=== PATIENT | female | born 1995 | race Hispanic/Latino ===

== ENCOUNTER 2017-07-10 11:05 | Emergency (ER) | payer SELFPAY ==
[2017-07-10 12:05] LABS: #Lymphocytes 1.5 thou/uL (1.20-3.40); #Monocytes 0.5 thou/uL (0.11-0.59); #Neutrophils 4.9 thou/uL (1.40-6.50); %Basophils 0.6 % (0.0-1.0); %Eosinophils 0.5 % (0.0-10.0); %Lymphocytes 21.8 % (21.0-51.0); %Monocytes 7.5 % (0.0-10.0); %Neutrophils 69.6 % (42.0-75.0); Hemoglobin 11.1 g/dL (12.0-16.0); Mean Corpuscular Hemoglobin 30.8 pg (27.0-31.0); Mean Corpuscular Volume 93.5 fl (81.0-99.0); Mean Platelet Volume 7.5 fL (7.4-10.4); Platelet Count 328 thou/uL (130-400); RBC Distribution Width 12.2 % (11.5-14.5); Red Blood Cell (RBC) Count 3.61 mill/uL (4.20-5.40); White Blood Cell (WBC) Count 7.1 thou/uL (4.8-10.8)
[2017-07-10 12:32] LABS: ALT (SGPT) 41 U/L (8-55); AST (SGOT) 26 U/L (5-34); Albumin 4.3 g/dL (3.5-5.0); Alkaline Phosphatase 51 U/L (40-150); Anion Gap 12 mmol/L (10-20); BUN (Urea Nitrogen) 12 mg/dL (7.0-18.7); Bilirubin, Total 0.3 mg/dL (0.2-1.2); Calc. Creatinine Clearance 0 mL/min (70-130); Calcium 9.4 mg/dL (7.8-10.44); Carbon Dioxide 25 mmol/L (22-29); Chloride 105 mmol/L (98-107); Estimated GFR-MDRD Greater than 90; Glucose 101 mg/dL (70-105); Potassium 3.8 mmol/L (3.5-5.1); Protein, Total 7.3 g/dL (6.0-8.3); Sodium 138 mmol/L (136-145)
[2017-07-10] MEDS ORDERED: Ibuprofen 200 MG TAB ONE (12:49)
[2017-07-10 13:10] LABS: Bilirubin Small (Negative); Blood, Urine Large (Negative); Clarity CLOUDY (Clear); Glucose, Urine (Dipstick) Negative (Negative); Leukocyte Small (Negative); Nitrite Negative (Negative); Protein, Urine (Dipstick) 100 mg/dL (Neg-Trace); Specific Gravity, Urine 1.026 (1.002-1.036)
[2017-07-10 13:12] LABS: Pregnancy Test - Urine (BHCG) POSITIVE (Negative); Pregu Control Background? CLEAR/WHITE (CLR/WHITE); Pregu Control Bar Appear? YES (CONTROL BAR); Specific Gravity 1.026 (1.002-1.036)
[2017-07-10 13:13] LABS: Hyaline Casts/LPF 4-6 HYALINE CAST LPF (0-3 Hyaline); Pathc Cast-AUWi Flag 0.94 (0-2.49); WBC/HPF 21-50 HPF (0-3)
[2017-07-10 13:22] LABS: Bacteria/HPF 1+ HPF (None Seen); Yeast-All Forms None Seen HPF (None Seen)
[2017-07-12 01:13] LABS: Chlamydia by PCR Not Detected (NotDetected); GC by PCR Not Detected (NotDetected)
== END 2017-07-10 15:08 | disposition home or self-care (01) ==
LOC: ERS 11:05
DX: O03.4 Incomplete spontaneous abortion without complication (principal)
CPT/HCPCS: 36415; 80053; 81003; 81015; 81025; 84702; 85025; 86900; 86901; 87480; 87491; 87510; 87591; 87660; 99284

== ENCOUNTER 2018-02-14 20:39 | Emergency (ER) | payer MEDICAID, OTHER | END 2018-02-14 22:45 | disposition home or self-care (01) | LOC: ERS 20:39 | DX: O9A.211 Injury, poisoning and certain other consequences of external causes complicating pregnancy, first trimester (principal); V43.52XA Car driver injured in collision with other type car in traffic accident, initial encounter | CPT/HCPCS: 99283 ==

== ENCOUNTER 2018-03-31 09:21 | Day surgery (SDC) | payer OTHER ==
[2018-03-31 09:52] VITALS: BP 111/64; TEMP 99.4
--- NOTE | 2018-03-31 10:05 | PDOC.FPROB ---
FMR OB H&P: HPI - History of Present Illness Chief Complaint: abdominal pain History of Present Illness: 22 yo at 22.3w by reported 19.1w sono at [facility] (no records available at this time) presents with cc of abdominal pain that started suddenly at 0500 this morning. She reports she was sleeping and it woke her from sleep. She went to the restroom, walked around a bit and pain improved. She laid back down and then woke up again with sudden sharp pain at approximately 0830. She has not tried anything to help with the pain. She was feeling fine yesterday apart from possibly a little bit of lower abdominal pain that she associates with some [place] contractions. She is feeling baby move (about 4X a day right now) . She denies n/v/d/f/c. She denies any rashes or sick contacts. She ate dinner without issue last night but has not yet eaten this morning. She has a little bit of an appetite but less than usual. Primary Care Physician: PNC FMR OB H&P: Current - Care : 2 Para: 0 Gestational age: 22.3 Due date: 08/01/2017 Dating Criteria: reported 19.1w sono Course/Complications: None per patient - OB Labs Blood type: unknown RH: unknown Antibody Screen: unknown HIV: unknown RPR: unknown HepBsAg: unknown Quad screen: unknown (patient reports negative) Gonorrhea: unknown Chlamydia: unknown GBS: unknown - First Trimester Ultrasound First trimester: Patient reports sono on 03/08/18 (19.1w) FMR OB H&P: History - Past Medical History PMH: Anxiety - previously on Lexapro which she has not taken this - OB History OB History: SAB in Jun 2017 (8 weeks) - Surgical History Sx History: Denies - Social History Social History: Denies tobacco, alcohol, drug use - Family History Family History: Mom - DM FMR OB H&P: Medications - Current Home Medications: Medication Instructions Recorded Confirmed Type 21/Iron Fu/Folic Acid 1 tablet PO DAILY 03/31/18 03/31/18 History [ Complete Caplet] Allergies/Adverse Reactions: Allergies Allergy/AdvReac Type Severity Reaction Status Date / Time No Known Drug Allergies Allergy Verified 03/31/18 09:53 FMR OB H&P: ROS - Review of Systems General: reports: weight/appetite/sleep changes (slightly decreased appetite this morning), other. denies: fever/chills Eyes: denies: eye pain, vision changes ENT: denies: nasal congestion, sore throat Cardiovascular: denies: chest pain, palpitation Respiratory: denies: cough, congestion Gastrointestinal: reports: abdominal pain. denies: nausea, vomiting, diarrhea Genitourinary (Female): denies: dysuria, hematuria Musculoskeletal: denies: pain, swelling Neurologic: denies: loss of counsciousness, headache Integumentary: denies: rash, lesions Psychological: reports: other (endorses nightmares) FMR OB H&P: Vital Signs - Maternal Vital signs: Vital Signs - First Documented Temp Pulse Resp BP 99.4 F 83 16 111/64 03/31/18 09:48 03/31/18 09:48 03/31/18 09:48 03/31/18 09:48 - Heart Tones Baseline: 150 Variability: moderate Acceleration: absent Deceleration: absent [place] contractions every: none FMR OB H&P: Physical Exam - Physical Exam General: awake, alert and oriented, other (appears slightly uncomfortable) HEENT: normocephalic and atraumatic, MMM Neck: supple Heart: RRR, normal S1/S2 General: CTAB, no respiratory distress Abdomen: soft, gravid, fundus(cm) (20), other (bowel sounds hypoactive, point tenderness just above umbilicus that radiates to RLQ, negative Villareal's sign and negative McBurney's point tenderness) Musculoskeletal: pulses present, FROM in all four extremities Neurological: DTR +1, no focal deficit Skin: no rash, good tugor, capillary refill <2 seconds Psychiatric: good judgement and insight, normal mood and affect FMR OB H&P: A/P - Problem List (1) Current Visit: Yes Status: Acute (2) Abdominal pain affecting Current Visit: Yes Status: Acute Code(s): O26.899 - OTH RELATED CONDITIONS, UNSPECIFIED TRIMESTER; R10.9 - UNSPECIFIED ABDOMINAL PAIN Disposition: 22 yo at 22.3w by reported 19.1w sono here with abdominal pain 1. Abdominal pain - Sudden onset and now persistent 7/10 - Due to periumbilical location with radiation RLQ, will check CBC to look for e /o infection and monitor on L&D - UA with reflex micro - 1g Tylenol and 1L LR 2. at 22w - Patient reports regular care at [facility] - No records available at this time Dispo: Will monitor on L&D Discussion: Date/Time: 03/31/18 0957 This H&P was discussed with Dr. López who agree with the above documentation and plan.
[2018-03-31] MEDS ORDERED: Acetaminophen 500 MG TAB PO SCH (10:30)
[2018-03-31 10:35] LABS: Bilirubin Negative (Negative); Blood, Urine Negative (Negative); Clarity CLEAR (Clear); Glucose, Urine (Dipstick) Negative (Negative); Leukocyte Negative (Negative); Nitrite Negative (Negative); Protein, Urine (Dipstick) Negative (Neg-Trace); Specific Gravity, Urine 1.007 (1.002-1.036); Urobilinogen 0.2 mg/dL (0.2-1.0)
[2018-03-31 10:41] LABS: #Eosinphils 0.1 thou/uL (0.0-0.7); #Lymphocytes 1.5 thou/uL (1.20-3.40); #Monocytes 0.6 thou/uL (0.11-0.59); %Basophils 0.1 % (0.0-1.0); %Eosinophils 0.7 % (0.0-10.0); %Lymphocytes 13.6 % (21.0-51.0); %Monocytes 5.1 % (0.0-10.0); %Neutrophils 80.5 % (42.0-75.0); Hemoglobin 11.5 g/dL (12.0-16.0); Mean Corpuscular HGB CONC 33.5 g/dL (32.0-36.0); Mean Corpuscular Volume 92.7 fL (78.0-98.0); Mean Platelet Volume 8.9 fL (7.4-10.4); Platelet Count 225 thou/uL (130-400); RBC Distribution Width 13.6 % (11.5-14.5); Red Blood Cell (RBC) Count 3.71 mill/uL (4.20-5.40); White Blood Cell (WBC) Count 11.2 thou/uL (4.8-10.8)
[2018-03-31] MEDS ORDERED: Lactated Ringer's 1,000 ML IV SCH (10:45)
--- NOTE | 2018-03-31 11:07 | PDOC.EVN ---
Event Note - Event Note Event Note: S: Pain remains 7/10 with palpation. Now with slight TTP in RUQ that radiates to RLQ. Denies any new nausea or chills. O: VSS, T now 98.4 FHT 150/mod/no accels/no decels, reassuring Feeling baby move A/P: 22 yo at 22.3w here with abdominal pain 1. Abdominal pain - Labs reviewed. WBC slightly elevated (WNL for ) with neutrophil predominance - UA unremarkable - Will finish 1L bolus and re-assess pain at that time - If persistent, worsening, may consider further imaging
--- NOTE | 2018-03-31 12:09 | PDOC.EVN ---
Event Note - Event Note Event Note: S: Pain improving. None at rest. Denies any new nausea or chills. O: VSS BS sono showed posterior placenta, gross movement and cardiac motion Gen: awake, alert, in no distress, ambulating Abd: soft, midly TTP superior to umbilicus, no RUQ/RLQ pain A/P: 22 yo at 22.3w here with abdominal pain likely 2/2 round ligament pain 1. Abdominal pain, likely round ligament pain - Labs reviewed. WBC slightly elevated (WNL for ) with neutrophil predominance - UA unremarkable - Pain improving with Tylenol, discussed gentle stretching, PRN tylenol at home , hydration - Discussed return precautions including fever, chills, n/v/d, vaginal bleeding or discharge - F/u at [facility] this week
== END 2018-03-31 12:10 | disposition home or self-care (01) ==
LOC: L&D/OP 09:21
PROVIDERS: ATTEND Obstetrics & Gynecology
DX: O99.89 Other specified diseases and conditions complicating pregnancy, childbirth and the puerperium (principal); R10.33 Periumbilical pain; R10.31 Right lower quadrant pain; O99.342 Other mental disorders complicating pregnancy, second trimester; F41.9 Anxiety disorder, unspecified; Z3A.22 22 weeks gestation of pregnancy; Z79.899 Other long term (current) drug therapy
CPT/HCPCS: 76815; 81003; 85025; 96360; 96361; 99283

== ENCOUNTER 2018-08-07 21:00 | Inpatient (IN) | payer OTHER ==
[2018-08-07] MEDS ORDERED: Ibuprofen 800 MG TAB PO PRN (21:29)
[2018-08-07] MEDS ORDERED: NS / Oxytocin 40 units/1000ml 1,000 ML IV PRN (21:29)
[2018-08-07] MEDS ORDERED: Ondansetron PF 4 MG/2 ML Vial IVP PRN (21:29)
[2018-08-07] MEDS ORDERED: Acetaminophen 500 MG TAB PO PRN (21:29)
[2018-08-07] MEDS ORDERED: Lidocaine 1% (PF) 30 ML VIAL SC PRN (21:29)
[2018-08-07] MEDS ORDERED: Promethazine HCl 25 MG/ML VIAL IM PRN (21:29)
[2018-08-07] MEDS ORDERED: Docusate 100 MG CAP PO PRN (21:29)
[2018-08-07] MEDS ORDERED: Misoprostol 100 MCG TAB VAG SCH (21:30)
--- NOTE | 2018-08-07 21:33 | PDOC.FPROB ---
FMR OB H&P: HPI - History of Present Illness Chief Complaint: Post-dates IOL Indentification: at 40.6 wks History of Present Illness: 23 year old at 40.6 wks by LMP/19.1 wks sono presents for post-dates IOL. Patient has history of anemia in . She denies LoF, vaginal bleeding, or vaginal discharge. Patient endorses occasional contractions. Endorses good movement. 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 History: No history of abnormal Pap smears No history of STDs - Surgical History Sx History: Denies - Social History Social History: Denies alcohol, tobacco, or drug use - Family History Family History: Insignificant FMR OB H&P: Medications - Current Home Medications: Medication Instructions Recorded Confirmed Type 21/Iron Fu/Folic Acid 1 tablet PO DAILY 03/31/18 08/07/18 History [ Complete Caplet] Allergies/Adverse Reactions: Allergies Allergy/AdvReac Type Severity Reaction Status Date / Time No Known Drug Allergies Allergy Verified 08/07/18 21:26 FMR OB H&P: ROS - Review of Systems General: denies: fever/chills, weight/appetite/sleep changes Eyes: denies: vision changes, double vision ENT: denies: nasal congestion, rhinorrhea, sore throat Cardiovascular: denies: chest pain, palpitation, edema Respiratory: denies: cough, congestion, shortness of breath Gastrointestinal: denies: abdominal pain, bloating, nausea, diarrhea, constipation Genitourinary (Female): reports: contractions. denies: vaginal discharge, vaginal pain, vaginal bleeding Musculoskeletal: denies: pain, stiffness Neurologic: denies: numbness, syncope, seizures Integumentary: reports: other (striae gravidarum). denies: itching, rash, lesions Hematologic/Lymphatic: denies: prolonged or excessive bleeding Psychological: denies: depression, anxiety FMR OB H&P: Vital Signs - Maternal Vital signs: BP 120/69 Pulse 90 Afebrile - Heart Tones Baseline: 145 Variability: moderate Acceleration: present Deceleration: absent Category: category 1 [place] contractions every: q6 min FMR OB H&P: Physical Exam - Physical Exam General: NAD HEENT: normocephalic and atraumatic, EOMI, MMM, grossly normal vision, grossly normal hearing Neck: supple Heart: RRR, normal S1/S2, no murmurs/rubs/gallops General: CTAB, good air movement Abdomen: soft, gravid, non-tender Musculoskeletal: pulses present, FROM in all four extremities Neurological: no tremor, no focal deficit Skin: no rash, capillary refill <2 seconds Lymphatic: no unusual bruising or bleeding, no purpura Psychiatric: intact recent and remote memory, good judgement and insight, normal mood and affect - Pelvic Exam Vulva: normal hair distribution SVE: 22:00 closed/thick/high Gustafson score: 0 Presentation: cephalic FMR OB H&P: A/P - Problem List (1) Encounter for induction of labor Current Visit: Yes Status: Acute Code(s): Z34.90 - ENCNTR FOR SUPRVSN OF NORMAL , UNSP, UNSP TRIMESTER (2) Post-dates Current Visit: Yes Status: Acute Code(s): O48.0 - POST-TERM (3) Anemia affecting Current Visit: Yes Status: Acute Code(s): O99.019 - ANEMIA COMPLICATING , UNSPECIFIED TRIMESTER Disposition: 23 year old at 40.6 wks by LMP/19.1 wks presents for post-dates IOL 1. Post-dates IOL - Cytotec induction: Gustafson score 0 - q4h checks - Uncomplicated - Vertex on bedside sono 2. Anemia of - H&H improved with 3T labs with iron rich foods; patient not on supplementation 3. SAB x1 Discussion: Date/Time: 08/07/182131 This H&P was discussed with Dr. Morales who agrees with the above documentation and plan. Signature: Olesya Singh, PGY-2
[2018-08-07 21:39] VITALS: BMI 36.8
[2018-08-07] MEDS: Lactated Ringer's 1,000 ML IV SCH (21:50)
[2018-08-07 22:04] LABS: Hemoglobin 12.3 g/dL (12.0-16.0); Mean Corpuscular HGB CONC 33.2 g/dL (32.0-36.0); Mean Corpuscular Hemoglobin 30.9 pg (27.0-31.0); Mean Corpuscular Volume 93.1 fL (78.0-98.0); Mean Platelet Volume 9.2 fL (7.4-10.4); Platelet Count 203 thou/uL (130-400); RBC Distribution Width 12.5 % (11.5-14.5); Red Blood Cell (RBC) Count 3.98 mill/uL (4.20-5.40); White Blood Cell (WBC) Count 9.9 thou/uL (4.8-10.8)
[2018-08-07 22:44] LABS: Syphilis Antibody Nonreactive (Nonreactive); Syphilis Antibody Index 0.03 S/CO (<1.00 Non-Reactive)
[2018-08-07] MEDS ORDERED: Bupivacaine 0.25% 10 ML VIAL ONE (23:00)
[2018-08-07] MEDS ORDERED: Bupivacaine 0.25% HCL 30 ML VIAL ONE (23:00)
[2018-08-07 23:20] LABS: HBSAg Index 0.31 S/CO (0-0.99); Hep B Surf Ag Non-Reactive S/CO (NonReactive)
[2018-08-08] MEDS: Misoprostol 100 MCG TAB VAG SCH ×3 (02:15→15:44)
--- NOTE | 2018-08-08 02:22 | PDOC.LDPN ---
Labor & Delivery Progress Note - Subjective Subjective: comfortable - Objective Vital signs reviewed and normal: yes General: NAD, resting Uterine fundus: non tender Dilation: 1 Effacement: 0% Station: -3 FHT: category 1, variability present [place] contractions every: 3-6 minutes Plan: continue plan of care, labor augmentation -: 0200 23 year old at 40.6 wks by LMP/19.1 wks presents for post-dates IOL 1. Post-dates IOL - Cytotec placed @2200 Gustafson score 0 - SVE @ 0200: 1/thick/high; cxns q3-6 minutes, cytotec placed - FHTs reactive and reassuring - Uncomplicated - Vertex on bedside sono - GBS neg - continue q4h SVE checks 2. Anemia of - H&H improved with 3T labs with iron rich foods; patient not on supplementation 3. SAB x1
[2018-08-08] MEDS: Lactated Ringer's 1,000 ML IV SCH ×4 (06:02→19:13)
--- NOTE | 2018-08-08 06:10 | PDOC.LDPN ---
Labor & Delivery Progress Note - Subjective Subjective: painful contractions - Objective Vital signs reviewed and normal: yes General: resting, breathing through contractions Dilation: 4 Effacement: 50% Station: -3 FHT: category 1, variability present [place] contractions every: 2-3 min Plan: continue plan of care -: 0600 23 year old at 40.6 wks by LMP/19.1 wks presents for post-dates IOL 1. Post-dates IOL - Uncomplicated - Vertex on bedside sono - GBS neg - Cytotec placed @2200 [place] score 0 - SVE @ 0200: 1/thick/high, cytotec placed - SVE @ 0600: 4/50/-3, MARTINEZ 6, cxns q2-3 min - FHTs reactive and reassuring - Patient desires epidural, does not want it yet - continue q4h SVE checks 2. Anemia of - H&H improved with 3T labs with iron rich foods; patient not on supplementation 3. SAB x1
[2018-08-08] MEDS: Butorphanol Tartrate 1 MG/ML VIAL SLOW IVP PRN ×2 (07:50→08:58)
--- NOTE | 2018-08-08 10:58 | PDOC.LDPN ---
Labor & Delivery Progress Note - Subjective Subjective: comfortable, painful contractions - Objective Vital signs reviewed and normal: yes General: NAD, resting, breathing through contractions Uterine fundus: palpable contractions Dilation: 4 Effacement: 75% Station: -3 FHT: category 1, variability present [place] contractions every: 2-3min Resuscitative measures: maternal IV fluids - Assessment (1) Encounter for induction of labor Code(s): Z34.90 - ENCNTR FOR SUPRVSN OF NORMAL , UNSP, UNSP TRIMESTER Current Visit: Yes Status: Acute Comment: - epidural did not take very well so it was redone - will continue to monitor and recheck in 2 hours - 80/-1 at 20:30 - toco q4 minutes since epidural - Vertex on bedside sono - GBS neg - SVE @ 0200: 1/thick/high, cytotec placed - SVE @ 0600: 4/50/-3, MARTINEZ 6, cxns q2-3 min - SVE @ 0900: 4/75/-3, CTX every 2-3 min - SVE @ 1100: 5/75/-3, CTX q2-3min - SVE @ 1345: 6/80/-1, CTX q3-5min - SVE @ 1600: 6/80/-1 CTX q5min - SVE @ 19:30 6/80/-1 CTX q4min; Pitocin stopped d/t late decels; repositioning , fluid bolus and maternal oxygen initiated - SVE @ 20:30 6/80/-1 CTX q5min; AROM and IUPC placed (2) Current Visit: No Status: Acute Plan: continue plan of care -: 23 year old at 40.6 wks by LMP/19.1 wks presents for post-dates IOL Post-dates IOL - Uncomplicated - Vertex on bedside sono - GBS neg - Cytotec x 2 - last placed aroun 0200 - SVE @ 0200: 1/thick/high, cytotec placed - SVE @ 0600: 4/50/-3, MARTINEZ 6, cxns q2-3 min - SVE @ 0900: 4/75/-3, CTX every 2-3 min - FHTs reactive and reassuring - Patient desires epidural, does not want it yet; stadol x 2 for pain - Will recheck at 1130 - Will consider adding pitocin at next check Anemia of - H&H improved with 3T labs with iron rich foods; patient not on supplementation SAB x1 - aware Case discussed with Dr. Damian Addendum - Attending - Attending Attestation Date/Time: 08/08/18 9094 I personally evaluated the patient and discussed the management with Dr. Carrillo I agree with the History, Examination, Assessment and Plan documented above with any addition or exceptions noted below. 23 yo female at 41.0 wks by LMP/19.1 wk sono here for postdates IOL HD#1 Patient doing well. +FM. Tolerating contractions well. Would like epidural for pain control when needed. FHT cat 1 VS reviewed. Nontender abdomen. EFW 7.5. Vertex. 1. sIUP: IOB labs reviewed. Anatomy sono reviewed. 2T/3T labs reviewed. GBS negative. s/p flu and Tdap 2. postdates IOL: Tolerating well. s/p miso x2 now progressing on her own. Continue to monitor. Repeat exam in 4 hours. Review monitoring frequently. 3. Anemia of 4. SAB x1 5. BMI 37: Lifestyle changes. Encourage early ambulation and breast feeding. Loyd
[2018-08-08] MEDS ORDERED: Fentanyl 4 mcg/Bup 0.1% Cadd 100 ML ONE ×2 (11:48→19:11)
[2018-08-08] MEDS ORDERED: Lidocaine 1.5% w/Epi 1:200K 30 ML VIAL (Epid Use) ONE (11:49)
--- NOTE | 2018-08-08 11:57 | PDOC.LDPN ---
Labor & Delivery Progress Note - Subjective Subjective: comfortable, painful contractions - Objective Vital signs reviewed and normal: yes General: NAD, resting, breathing through contractions Uterine fundus: non tender Dilation: 5 Effacement: 75% Station: -3 FHT: category 1, variability present [place] contractions every: q2-3min Other exam findings: FHR 150, accels present, no decels Resuscitative measures: maternal IV fluids - Assessment (1) Encounter for induction of labor Code(s): Z34.90 - ENCNTR FOR SUPRVSN OF NORMAL , UNSP, UNSP TRIMESTER Current Visit: Yes Status: Acute Comment: - epidural did not take very well so it was redone - will continue to monitor and recheck in 2 hours - /-1 at 20:30 - toco q4 minutes since epidural - Vertex on bedside sono - GBS neg - SVE @ 0200: 1/thick/high, cytotec placed - SVE @ 0600: 4/50/-3, MARTINEZ 6, cxns q2-3 min - SVE @ 0900: 4/75/-3, CTX every 2-3 min - SVE @ 1100: 5/75/-3, CTX q2-3min - SVE @ 1345: 6/80/-1, CTX q3-5min - SVE @ 1600: 6/80/-1 CTX q5min - SVE @ 19:30 6/80/-1 CTX q4min; Pitocin stopped d/t late decels; repositioning , fluid bolus and maternal oxygen initiated - SVE @ 20:30 80/-1 CTX q5min; AROM and IUPC placed (2) Current Visit: No Status: Acute Plan: continue plan of care -: 23 year old at 40.6 wks by LMP/19.1 wks presents for post-dates IOL Post-dates IOL - Uncomplicated - Vertex on bedside sono - GBS neg - Cytotec x 2 - last placed around 0200 - SVE @ 0200: 1/thick/high, cytotec placed - SVE @ 0600: 4/50/-3, MARTINEZ 6, cxns q2-3 min - SVE @ 0900: 4/75/-3, CTX every 2-3 min - @ 1100: 5/75/-3, CTX q2-3min - FHTs reactive and reassuring - s/p stadol x 2; patient desires epidural, will contact anesthesia for placement. Once patient is comfortable will consider pitocin - Will recheck in 2 hours after pit has been started Anemia of - H&H improved with 3T labs with iron rich foods; patient not on supplementation SAB x1 - aware Case discussed with Dr. Rickie Holland - Attending - Attending Attestation Date/Time: 08/08/18 1327 I personally evaluated the patient and discussed the management with Dr. Carrillo I agree with the History, Examination, Assessment and Plan documented above with any addition or exceptions noted below. 23 yo female at 41.0 wks by LMP/19.1 wk sono here for postdates IOL HD#1 Patient with painful contractions. s/p stadol x2. No improvement. Requesting epidural. FHT cat 1 VS reviewed. SVE /-2. Intact. Nontender abdomen. EFW 7.5. Vertex. 1. sIUP: IOB labs reviewed. Anatomy sono reviewed. 2T/3T labs reviewed. GBS negative. s/p flu and Tdap 2. postdates IOL: Requesting epidural. s/p miso x2 now progressing on her own. Continue to monitor. Repeat exam in 2 to 4 hours. Review monitoring frequently. 3. Anemia of 4. SAB x1 5. BMI 37: Lifestyle changes. Encourage early ambulation and breast feeding. Loyd
[2018-08-08] MEDS ORDERED: Ondansetron PF 4 MG/2 ML Vial ONE ×2 (12:02→21:34)
[2018-08-08] MEDS ORDERED: ePHEDrine/0.9% NaCl/PF SYRINGE 50 mg/10 ml SLOW IVP PRN (12:58)
[2018-08-08] MEDS ORDERED: Acetaminophen 325 MG TAB PO PRN (12:58)
[2018-08-08] MEDS ORDERED: Naloxone HCl 0.4 mg/ml Vial IVP PRN ×4 (12:58→21:05)
[2018-08-08] MEDS ORDERED: Lactated Ringer's 500 ML IV PRN (12:58)
[2018-08-08] MEDS ORDERED: Eucerin (Mineral Oil/Petrolatum,White) 30 gm Jar TOP PRN ×2 (12:58→21:05)
[2018-08-08] MEDS ORDERED: diphenhydrAMINE 50 MG/ML VIAL IVP PRN ×2 (12:58→21:05)
[2018-08-08] MEDS ORDERED: Promethazine HCl 25 MG/ML VIAL IM PRN ×2 (12:58→21:05)
[2018-08-08] MEDS ORDERED: Ondansetron PF 4 MG/2 ML Vial IVP PRN ×2 (12:58→21:05)
[2018-08-08] MEDS ORDERED: Fentanyl 4 mcg/Bupivacaine 0.1% Cassette 100 ML EPIDURAL SCH (13:00)
[2018-08-08] MEDS ORDERED: Communication Order-Pharmacy FS SCH ×2 (13:00→21:15)
--- NOTE | 2018-08-08 15:22 | PDOC.LDPN ---
Labor & Delivery Progress Note - Subjective Subjective: comfortable (resting) - Objective Vital signs reviewed and normal: yes General: NAD, resting SVE: /-1 Dilation: 6 Station: -1 FHT: category 2 (1 or 2 variable decels), variability present [place] contractions every: 3-5 min Procedures: epidural placed - Assessment (1) Anemia affecting Code(s): O99.019 - ANEMIA COMPLICATING , UNSPECIFIED TRIMESTER Current Visit: Yes Status: Acute (2) Encounter for induction of labor Code(s): Z34.90 - ENCNTR FOR SUPRVSN OF NORMAL , UNSP, UNSP TRIMESTER Current Visit: Yes Status: Acute Comment: - epidural did not take very well so it was redone - will continue to monitor and recheck in 2 hours - at 20:30 - toco q4 minutes since epidural - Vertex on bedside sono - GBS neg - SVE @ 0200: 1/thick/high, cytotec placed - SVE @ 0600: 4/50/-3, MARTINEZ 6, cxns q2-3 min - SVE @ 0900: 4/75/-3, CTX every 2-3 min - SVE @ 1100: 5/75/-3, CTX q2-3min - SVE @ 1345: 6/80/-1, CTX q3-5min - SVE @ 1600: 680/-1 CTX q5min - SVE @ 19:30 /-1 CTX q4min; Pitocin stopped d/t late decels; repositioning , fluid bolus and maternal oxygen initiated - SVE @ 20:30 -1 CTX q5min; AROM and IUPC placed (3) Post-dates Code(s): O48.0 - POST-TERM Current Visit: Yes Status: Acute Qualifiers: Post-term type: 40-42 weeks gestation Qualified Code(s): O48.0 - Post-term Plan: continue plan of care Addendum - Attending - Attending Attestation Date/Time: 08/08/18 6132 I personally evaluated the patient and discussed the management with Dr. Carrillo I agree with the History, Examination, Assessment and Plan documented above with any addition or exceptions noted below. 23 yo female at 41.0 wks by LMP/.1 wk sono here for postdates IOL HD#1 Patient doing well. Epidural now working. FHT cat 1 VS reviewed. SVE /-2. Intact. Nontender abdomen. EFW 7.5. Vertex. 1. sIUP: IOB labs reviewed. Anatomy sono reviewed. 2T/3T labs reviewed. GBS negative. s/p flu and Tdap 2. postdates IOL: Epidural in place and working. Now in active labor. s/p miso x2. Continue to monitor. Repeat exam in 2 to 4 hours. Review monitoring frequently. 3. Anemia of 4. SAB x1 5. BMI 37: Lifestyle changes. Encourage early ambulation and breast feeding. Loyd
--- NOTE | 2018-08-08 16:14 | PDOC.LDPN ---
Labor & Delivery Progress Note - Subjective Subjective: comfortable - Objective Vital signs reviewed and normal: yes SVE: /-1 FHT: category 1 (135) [place] contractions every: 5 minutes - Assessment (1) Anemia affecting Code(s): O99.019 - ANEMIA COMPLICATING , UNSPECIFIED TRIMESTER Current Visit: Yes Status: Acute (2) Encounter for induction of labor Code(s): Z34.90 - ENCNTR FOR SUPRVSN OF NORMAL , UNSP, UNSP TRIMESTER Current Visit: Yes Status: Acute Comment: - epidural did not take very well so it was redone - will continue to monitor and recheck in 2 hours - at 20:30 - toco q4 minutes since epidural - Vertex on bedside sono - GBS neg - SVE @ 0200: 1/thick/high, cytotec placed - SVE @ 0600: 4/50/-3, MARTINEZ 6, cxns q2-3 min - SVE @ 0900: 4/75/-3, CTX every 2-3 min - SVE @ 1100: 5/75/-3, CTX q2-3min - SVE @ 1345: 80/-1, CTX q3-5min - SVE @ 1600: 80/-1 CTX q5min - SVE @ 19:30 /-1 CTX q4min; Pitocin stopped d/t late decels; repositioning , fluid bolus and maternal oxygen initiated - SVE @ 20:30 /-1 CTX q5min; AROM and IUPC placed (3) Post-dates Code(s): O48.0 - POST-TERM Current Visit: Yes Status: Acute Qualifiers: Post-term type: 40-42 weeks gestation Qualified Code(s): O48.0 - Post-term Addendum - Attending - Attending Attestation Date/Time: 08/08/18 9927 I personally evaluated the patient and discussed the management with Dr. Carrillo I agree with the History, Examination, Assessment and Plan documented above with any addition or exceptions noted below. 23 yo female at 41.0 wks by LMP/19.1 wk sono here for postdates IOL HD#1 Patient doing well. Epidural now working. FHT cat 1 VS reviewed. SVE /-1. Intact. (minimal change on exam) Nontender abdomen. EFW 7.5. Vertex. 1. sIUP: IOB labs reviewed. Anatomy sono reviewed. 2T/3T labs reviewed. GBS negative. s/p flu and Tdap 2. postdates IOL: Epidural in place and working. Now in active labor. s/p miso x2. Continue to monitor. Repeat exam in 2 hours. Review monitoring frequently. Minimal change in exam. Discussed possible need for augmentation with patient. 3. Anemia of 4. SAB x1 5. BMI 37: Lifestyle changes. Encourage early ambulation and breast feeding. Loyd
[2018-08-08] MEDS ORDERED: NS w/ Oxytocin 10 units 500 ML ONE (17:01)
[2018-08-08] MEDS ORDERED: NS w/ Oxytocin 10 units 500 ML IV SCH (17:15)
--- NOTE | 2018-08-08 19:04 | PDOC.LDPN ---
Labor & Delivery Progress Note -: 23 year old at 40.6 wks by LMP/19.1 wks presents for post-dates IOL 1. Post-dates IOL - Uncomplicated - Vertex on bedside sono - GBS neg - epidural did not take very well so it was redone -will continue to monitor and recheck in 2 hours - SVE @ 0200: 1/thick/high, cytotec placed - SVE @ 0600: 4/50/-3, MARTINEZ 6, cxns q2-3 min - SVE @ 0900: 4/75/-3, CTX every 2-3 min - SVE @ 1100: 5/75/-3, CTX q2-3min - SVE @ 1345: 6/80/-1, CTX q3-5min @ 1600: 6/80/-1 CTX q5min - s/p stadol x 2 - SVE @ 1700: Case discussed with Dr. Damian
--- NOTE | 2018-08-08 19:43 | PDOC.LDPN ---
Labor & Delivery Progress Note - Subjective Subjective: comfortable - Objective Vital signs reviewed and normal: yes General: NAD, resting Uterine fundus: non tender SVE: 19:30 Dilation: 6 Effacement: 90% Station: -1 FHT: category 2, late decelerations, variability present [place] contractions every: q4 min Resuscitative measures: maternal IV fluids, maternal position change - Assessment (1) Encounter for induction of labor Code(s): Z34.90 - ENCNTR FOR SUPRVSN OF NORMAL , UNSP, UNSP TRIMESTER Current Visit: Yes Status: Acute Comment: - epidural did not take very well so it was redone - will continue to monitor and recheck in 2 hours - 80/-1 at 20:30 - toco q4 minutes since epidural - Vertex on bedside sono - GBS neg - SVE @ 0200: 1/thick/high, cytotec placed - SVE @ 0600: 4/50/-3, MARTINEZ 6, cxns q2-3 min - SVE @ 0900: 4/75/-3, CTX every 2-3 min - SVE @ 1100: 5/75/-3, CTX q2-3min - SVE @ 1345: 6/80/-1, CTX q3-5min - SVE @ 1600: 6/80/-1 CTX q5min - SVE @ 19:30 6/80/-1 CTX q4min; Pitocin stopped d/t late decels; repositioning , fluid bolus and maternal oxygen initiated - SVE @ 20:30 6/80/-1 CTX q5min; AROM and IUPC placed (2) Post-dates Code(s): O48.0 - POST-TERM Current Visit: Yes Status: Acute Qualifiers: Post-term type: 40-42 weeks gestation Qualified Code(s): O48.0 - Post-term (3) Anemia affecting Code(s): O99.019 - ANEMIA COMPLICATING , UNSPECIFIED TRIMESTER Current Visit: Yes Status: Acute Plan: continue plan of care -: Patient SVE unchanged from previous exam. Category 2 strip with late decelerations following pitocin. Pitocin stopped at this time. tachycardia after pitocin stopped. Patient being given 500 mL fluid bolus. Position changes made. Will initiate maternal oxygen or D5 if necessary. Patient counseled on possibility of C/S if not tolerating labor augmentation or progressing naturally. Will continue to monitor FHT's. Olesya Singh, DO PGY-2 Addendum - Attending - Attending Attestation Date/Time: 08/08/181942 I personally evaluated the patient and discussed the management with Dr. Singh I agree with the History, Examination, Assessment and Plan documented above with any addition or exceptions noted below. 23 yo female at 41.0 wks by LMP/19.1 wk sono here for postdates IOL HD#1 Patient doing well. Epidural now working. FHT cat 2 -- undergoing resuscitation measures VS reviewed. SVE /-1. Intact. (unchanged) Nontender abdomen. EFW 7.5. Vertex. 1. sIUP: IOB labs reviewed. Anatomy sono reviewed. 2T/3T labs reviewed. GBS negative. s/p flu and Tdap 2. postdates IOL: Epidural in place and working. Now in active labor. s/p miso x2. Continue to monitor. Unchanged since previous exam. Pitocin started at 1730. 3. Anemia of 4. SAB x1 5. BMI 37: Lifestyle changes. Encourage early ambulation and breast feeding. 6. Cat 2 tracing: Reassuring at this time. Pit stopped. Undergoing resuscitation measures. Risk and alternatives of mode of delivery discussed with patient. Questions addressed. Condition guarded. Close monitoring. Loyd
[2018-08-08] MEDS ORDERED: Lactated Ringer's 500 ML IV SCH (19:45)
[2018-08-08] MEDS ORDERED: CEFAZOLIN 2 GM/50 ML BAG ONE (20:36)
[2018-08-08] MEDS ORDERED: Bicitra 30 ML UDCUP ONE (20:37)
[2018-08-08] MEDS ORDERED: EPINEPHrine 1 MG/ML AMP ONE (20:42)
[2018-08-08] MEDS ORDERED: Lidocaine 2% 10 ML INJ ONE (20:42)
--- NOTE | 2018-08-08 20:43 | PDOC.LDPN ---
Labor & Delivery Progress Note - Subjective Subjective: comfortable - Objective Vital signs reviewed and normal: yes General: NAD, resting Uterine fundus: non tender SVE: 20:30 Dilation: 6 Effacement: 90% Station: -1 FHT: category 2, acceleration absent [place] contractions every: q5 min AROM: clear fluid IUPC placed: yes - Assessment (1) Encounter for induction of labor Code(s): Z34.90 - ENCNTR FOR SUPRVSN OF NORMAL , UNSP, UNSP TRIMESTER Current Visit: Yes Status: Acute Comment: - epidural did not take very well so it was redone - will continue to monitor and recheck in 2 hours - 680/-1 at 20:30 - toco q4 minutes since epidural - Vertex on bedside sono - GBS neg - SVE @ 0200: 1/thick/high, cytotec placed - SVE @ 0600: 4/50/-3, MARTINEZ 6, cxns q2-3 min - SVE @ 0900: 4/75/-3, CTX every 2-3 min - SVE @ 1100: 5/75/-3, CTX q2-3min - SVE @ 1345: 6/80/-1, CTX q3-5min - SVE @ 1600: 6/80/-1 CTX q5min - SVE @ 19:30 6/80/-1 CTX q4min; Pitocin stopped d/t late decels; repositioning , fluid bolus and maternal oxygen initiated - SVE @ 20:30 6/80/-1 CTX q5min; AROM and IUPC placed (2) Post-dates Code(s): O48.0 - POST-TERM Current Visit: Yes Status: Acute Qualifiers: Post-term type: 40-42 weeks gestation Qualified Code(s): O48.0 - Post-term (3) Anemia affecting Code(s): O99.019 - ANEMIA COMPLICATING , UNSPECIFIED TRIMESTER Current Visit: Yes Status: Acute -: After amniotomy at 20:30 FHT's with late decelerations and minimal to no variability. Category 2 strip currently, bordering on category 3 strip. Discussion was had with patient regarding proceeding with C/S due to NRFHT's. Category 2 strip bordering on category 3 strip. Patient has agreed to C/S at this time for well being of . She understands the risks and benefits associated with C/S. All resuscitative measures have been attempted at this point in time. Anesthesia has been notified. Patient will be taken back for pLTCS as indicated above. Olesya Singh, DO PGY-2 Addendum - Attending - Attending Attestation Date/Time: 08/10/182056 I personally evaluated the patient and discussed the management with Dr. Singh I agree with the History, Examination, Assessment and Plan documented above with any addition or exceptions noted below. 23 yo female at 41.0 wks by LMP/19.1 wk sono here for postdates IOL HD#1 FHT persistent cat 2 -- undergoing resuscitation measures VS reviewed. Increasing maternal temp but less than 100.4 SVE /-1. AROM. IUPC placed. Nontender abdomen. EFW 7.5. Vertex. 1. sIUP: IOB labs reviewed. Anatomy sono reviewed. 2T/3T labs reviewed. GBS negative. s/p flu and Tdap 2. postdates IOL: Epidural in place and working. Now in active labor. s/p miso x2. Continue to monitor. Unchanged since previous exam. Pitocin started at 1730. 3. Anemia of 4. SAB x1 5. BMI 37: Lifestyle changes. Encourage early ambulation and breast feeding. 6. persistent Cat 2 tracing: Initially reassuring cat II tracing that improved to cat I tracing for small amount of time. Contractions spaced at that time. Then cat 2 tracing returned with tachycardia (165 baseline), mod rené, no decels , no acels. Discussed augmentation with amniotomy. AROM performed. Great reactivity during placement. IUPC placed. Minimal fluid. No blood. Possible small amount of mec but difficult to tell. Uncomplicated procedure. Then tracing progressed to minimal varibility. No acels. Remained tachycardic. Late decels then occurred intermittently. Addressed concerns with patient. C/section was called. Patient currently in OR awaiting procedure. Loyd
[2018-08-08] MEDS ORDERED: Bicitra 30 ML UDCUP PO SCH (20:45)
[2018-08-08] MEDS ORDERED: CEFAZOLIN 2 GM/50 ML BAG IVPB SCH (20:45)
[2018-08-08] MEDS ORDERED: Azithromycin 500 MG in Sodium Chloride 0.9% 250 ML 250 ML IVPB SCH (20:45)
[2018-08-08] MEDS ORDERED: Morphine PF 1 MG/ML SYR ONE (21:00)
[2018-08-08] MEDS ORDERED: Oxytocin 10 UNITS/ML VIAL ONE ×2 (21:03→21:49)
[2018-08-08] MEDS ORDERED: Ondansetron HCl/PF 4 MG/2 ML Vial IVP PRN (21:05)
[2018-08-08] MEDS ORDERED: Promethazine HCl 25 MG SUPP PR PRN (21:05)
[2018-08-08] MEDS ORDERED: Acetaminophen 1,000 MG in Premix Bag 1 BAG IVPB PRN (21:05)
[2018-08-08] MEDS ORDERED: Ketorolac Tromethamine 30 MG/ML VIAL IVP SCH (21:15)
[2018-08-08] MEDS ORDERED: Methylergonovine 0.2 MG/ML VIAL ONE (21:22)
[2018-08-08 22:13] LABS: Actual Bicarbonate (HCO3a) 25.1 mEq/L (22-28); Base Excess (BEa) -4.2 mEq/L (-2.0 to +3.0)
[2018-08-08] MEDS ORDERED: diphenhydrAMINE 25 MG CAP PO PRN (23:51)
[2018-08-08] MEDS ORDERED: NS / Oxytocin 40 units/1000ml 1,000 ML IV SCH (23:51)
[2018-08-08] MEDS ORDERED: Lanolin Ointment 7 GM TUBE TOP PRN (23:51)
[2018-08-08] MEDS ORDERED: HYDROcodone/Acetaminophen 5/325 mg Tablet PO PRN (23:51)
[2018-08-08] MEDS ORDERED: Simethicone Chewable 80 MG TAB PO PRN (23:51)
[2018-08-09] MEDS ORDERED: Ketorolac Tromethamine 30 MG/ML VIAL ONE (00:03)
[2018-08-09] MEDS: Ketorolac Tromethamine 30 MG/ML VIAL IVP SCH ×5 (00:03→17:25)
--- NOTE | 2018-08-09 02:15 | PDOC.EVN ---
Event Note - Event Note Event Note: Four hours s/p section for Persistent Cat II strip. Mother is doing well, pain is well controlled. Lochia is minimal to moderate. Vitals: BP 117/74 P 76 T 99.5 R 18 95% on RA Cardiac: RRR, no murmurs Lungs: BCTA Abdomen: fundus firm and below umbilicus, appropriately TTP A&P: Continue with routine post care. Attending Note: I personally evaluated the patient and discussed the management with Dr. Hamilton I agree with the History, Examination, Assessment and Plan documented above with any addition or exceptions noted below. 23 yo female s/p PLTCS for persistent cat II tracing remote from delivery at 41.0 wks admitted for postdates IOL HD#2 POD#0 (08/08/18 at 21:16) Patient doing well. Pain controlled. Aden in place draining clear urine. Bandage intact. VS reviewed. No acute distress. No respiratory distress. CTA bilaterally. RRR Abdomen appropriately tender. Bandage in place -- clean and dry. 1. s/p PLTCS: Routine postop care. Remove aden once able to ambulate. Pressure bandage x 24 hours. Monitor pain control. 2. Anemia of 3. SAB x1 4. BMI 37: Lifestyle changes. Encourage early ambulation and breast feeding. 5. Contraception: LARC vs OCPs ABrayMD
[2018-08-09] MEDS: Sodium Chloride 0.9% 1,000 ML IV SCH ×3 (03:00→17:25)
[2018-08-09 06:35] LABS: Hemoglobin 11.9 g/dL (12.0-16.0); Mean Corpuscular HGB CONC 32.7 g/dL (32.0-36.0); Mean Corpuscular Hemoglobin 31.1 pg (27.0-31.0); Mean Corpuscular Volume 94.9 fL (78.0-98.0); Platelet Count 169 thou/uL (130-400); RBC Distribution Width 12.7 % (11.5-14.5); Red Blood Cell (RBC) Count 3.83 mill/uL (4.20-5.40); White Blood Cell (WBC) Count 13.1 thou/uL (4.8-10.8)
--- NOTE | 2018-08-09 08:50 | PDOC.PP ---
Post Progress Note Post Day #: 1 Subjective: Patient doing well this AM. No significant overnight events. Patient reports lochia minimal. Has not passed flatus or had BM. Has not been given anything to eat or drink, although she reports she is hungry. Pain well controlled. Patient has yet to ambulate. PO intake tolerated: no Flatus: no Ambulation: no Vital Signs (12 hours) Temp Pulse Resp BP Pulse Ox 08/09/18 08:13 98.5 F 77 20 119/75 96 08/09/18 04:55 66 18 118/76 97 08/09/18 02:25 98.8 F 76 18 114/60 97 08/09/18 01:30 71 18 113/64 96 08/09/18 00:25 99.5 F 80 18 117/57 L 95 Weight Weight 97.522 kg - Physical Examination General: NAD Cardiovascular: no m/r/g, RRR Respiratory: clear to auscultation bilaterally, non-labored breathing Abdominal: + bowel sounds, lochia (minimal), no distention, appropriately TTP Fundus firm & at: above umbilicus Extremities: negative homans (B) Skin: CS incision dry & intact (still in bandage; will reassess once bandage has been removed), no rash Neurological: no gross focal deficits Psychiatric: A&Ox3, normal affect Result Diagrams: 08/09/18 06:00 Additional Labs: Post Labs Blood Type A POSITIVE 08/07/18 21:42 Hep Bs Antigen Non-Reactive S/CO (NonReactive) 08/07/18 21:41 (1) S/P primary low transverse Code(s): Z98.891 - HISTORY OF UTERINE SCAR FROM PREVIOUS SURGERY Status: Acute (2) Term delivered Code(s): O80 - ENCOUNTER FOR FULL-TERM UNCOMPLICATED DELIVERY Status: Acute (3) Post-dates Code(s): O48.0 - POST-TERM Status: Acute Qualifiers: Post-term type: 40-42 weeks gestation Qualified Code(s): O48.0 - Post-term (4) Anemia affecting Code(s): O99.019 - ANEMIA COMPLICATING , UNSPECIFIED TRIMESTER Status : Acute - Assessment/Plan 23 year old --> delivered TAGA M at 41.0 wks by LMP/19.1 wk sono via pLTCS for NRFHT's (persistent category II strip with recurrent late decelerations, minimal variability, and tachycardia). 1. Term IUP, delivered - s/p pLTCS for above indications - Routine PP care - Incision with bandage which was clean, dry, intact - Encourage ambulation - ADAT - Lochia minimal - BP's in PP period after surgery have been WNL, will continue to monitor 2. s/p pLTCS for NRFHT's - Apgars 8/9 - ABG pH 7.21 with BE 4 - Tolerated procedure well - Routine PP C/S care - Encourage ambulation - Remove aden 3. Anemia of , first trimester - Improved with 3T labs - Pre-surgery H&H 12.3, Post-surgery H&H 11.9 Dispo: Stable. Encouraged ambulation. ADAT. Anticipate LOS >48 hours. Addendum - Attending - Attending Attestation Date/Time: 08/09/18 1351 I personally evaluated the patient and discussed the management with Dr. Singh I agree with the History, Examination, Assessment and Plan documented above with any addition or exceptions noted below. 23 yo female s/p PLTCS for persistent cat II tracing remote from delivery at 41.0 wks admitted for postdates IOL HD#3 POD#1 (08/08/18 at 21:16) Patient doing well. Pain controlled. Voiding well. Ambulating well. Pain controlled. VS reviewed. Labs reviewed. No acute distress. No respiratory distress. CTA bilaterally. RRR Abdomen appropriately tender. Bandage in place -- clean and dry. 1. s/p PLTCS: Routine postop care. Pressure bandage to be removed today. Monitor pain control. 2. Anemia of : postop H&H stable. 3. SAB x1 4. BMI 37: Lifestyle changes. Encourage early ambulation and breast feeding. 5. Contraception: LARC vs OCPs ABrayMD
[2018-08-09] MEDS ORDERED: Adacel (T-DAP) 0.5 ML SYRINGE IM ONE (09:00)
[2018-08-09] MEDS: Ferrous Sulfate 325 MG TAB PO SCH ×2 (09:09→17:13)
[2018-08-09] MEDS: Prenatal Vitamin 1 TAB PO SCH (09:43)
[2018-08-09] MEDS: Docusate Calcium (SURFAK) 240 MG CAP PO SCH ×2 (09:43→21:53)
[2018-08-09] MEDS: Ibuprofen 800 MG TAB PO SCH ×3 (14:19→21:58)
[2018-08-09] MEDS: Naloxone HCl 0.4 mg/ml Vial IV PRN ×2 (16:07→16:23)
[2018-08-09] MEDS: HYDROcodone/Acetaminophen 5/325 mg Tablet PO PRN (16:43)
[2018-08-10] MEDS: Ketorolac Tromethamine 30 MG/ML VIAL IVP SCH (02:58)
[2018-08-10] MEDS: Sodium Chloride 0.9% 1,000 ML IV SCH ×2 (02:59→09:26)
[2018-08-10] MEDS: HYDROcodone/Acetaminophen 5/325 mg Tablet PO PRN ×3 (06:19→16:40)
[2018-08-10] MEDS: Ibuprofen 800 MG TAB PO SCH ×3 (06:19→12:42)
[2018-08-10 08:18] VITALS: BP 114/67; TEMP 97.6
--- NOTE | 2018-08-10 08:21 | PDOC.PP ---
Post Progress Note Post Day #: 2 Subjective: Patient doing well. No significant overnight events. Tolerating PO. Ambulating. Pain well controlled. PO intake tolerated: yes Flatus: yes Ambulation: yes Vital Signs (12 hours) Temp Pulse Resp BP Pulse Ox 08/10/18 08:17 97.6 F 71 20 114/67 100 08/10/18 00:00 97.4 F L 73 18 114/64 08/09/18 20:30 98.0 F 80 16 105/56 L 96 Weight Weight 97.522 kg - Physical Examination General: NAD Cardiovascular: no m/r/g, RRR Respiratory: clear to auscultation bilaterally, non-labored breathing Abdominal: + bowel sounds, lochia (minimal), no distention, appropriately TTP Fundus firm & at: at umbilicus Extremities: negative homans (B) Skin: CS incision dry & intact, no rash Neurological: no gross focal deficits Psychiatric: A&Ox3, normal affect Result Diagrams: 08/09/18 06:00 Additional Labs: Post Labs Blood Type A POSITIVE 08/07/18 21:42 Hep Bs Antigen Non-Reactive S/CO (NonReactive) 08/07/18 21:41 (1) S/P primary low transverse Code(s): Z98.891 - HISTORY OF UTERINE SCAR FROM PREVIOUS SURGERY Status: Acute (2) Term delivered Code(s): O80 - ENCOUNTER FOR FULL-TERM UNCOMPLICATED DELIVERY Status: Acute (3) Post-dates Code(s): O48.0 - POST-TERM Status: Acute Qualifiers: Post-term type: 40-42 weeks gestation Qualified Code(s): O48.0 - Post-term (4) Anemia affecting Code(s): O99.019 - ANEMIA COMPLICATING , UNSPECIFIED TRIMESTER Status : Acute - Assessment/Plan 23 year old --> delivered TAGA M at 41.0 wks by LMP/19.1 wk sono via pLTCS for NRFHT's (persistent category II strip with recurrent late decelerations, minimal variability, and tachycardia). 1. Term IUP, delivered - s/p pLTCS for above indications - Routine PP care - Incision clean, dry, intact - Encourage ambulation - Lochia minimal - BP's in PP period after surgery have been WNL, will continue to monitor 2. s/p pLTCS for NRFHT's - Apgars 8/9 - ABG pH 7.21 with BE 4 - Tolerated procedure well - Routine PP C/S care 3. Anemia of , first trimester - Improved with 3T labs - Pre-surgery H&H 12.3, Post-surgery H&H 11.9 Dispo: Stable. Plan for d/c home tomorrow. Addendum - Attending - Attending Attestation Date/Time: 08/10/18 4553 I personally evaluated the patient and discussed the management with Dr. Singh I agree with the History, Examination, Assessment and Plan documented above with any addition or exceptions noted below. 23 yo female s/p PLTCS for persistent cat II tracing remote from delivery at 41.0 wks admitted for postdates IOL HD#4 POD#2 (08/08/18 at 21:16) Patient doing well. Pain controlled. Voiding well. Ambulating well. Pain controlled. Incision healing well. VS reviewed. Labs reviewed. No acute distress. No respiratory distress. CTA bilaterally. RRR Abdomen appropriately tender. Fundus firm below umbilicus. Incision without erythema, drainage, tenderness, or dehiscence 1. s/p PLTCS: Routine postop care. Monitor pain control. 2. Anemia of : postop H&H stable. 3. SAB x1 4. BMI 37: Lifestyle changes. Encourage early ambulation and breast feeding. 5. Contraception: LARC vs OCPs Home later today vs in AM ABrayMD
[2018-08-10] MEDS: Ferrous Sulfate 325 MG TAB PO SCH (09:25)
[2018-08-10] MEDS: Prenatal Vitamin 1 TAB PO SCH (10:59)
[2018-08-10] MEDS: Docusate Calcium (SURFAK) 240 MG CAP PO SCH (10:59)
[2018-08-10] MEDS: Misoprostol 100 MCG TAB VAG SCH (11:07)
--- NOTE | 2018-08-11 11:18 | OP ---
DATE OF PROCEDURE: 08/08/2018 RESIDENT SURGEON: Olesya Singh DO. SCREEN TACKER SURGEON: Carisa King MD ATTENDING SURGEON: Jocelyn Damian MD. PROCEDURE: Primary low-transverse section. PREOPERATIVE DIAGNOSES: 1. Term intrauterine . 2. Postdates induction of labor. 3. Non-reassuring heart tones;. a. Persistent category-II tracing and borderline category-III. b. Recurrent late decelerations and minimal variability. There was also tachycardia. No response to resuscitative measures. 4. Anemia in . 5. Spontaneous x1. 6. BMI 37 POSTOPERATIVE DIAGNOSES: 1. Term intrauterine . 2. Postdates induction of labor. 3. Non-reassuring heart tones;. 4. Persistent category two tracing and borderline category. a. Persistent category-II tracing and borderline category-III. b. Recurrent late decelerations and minimal variability. There was also tachycardia. No response to resuscitative measures. 5. Anemia in . 6. Spontaneous x1. 7. Primary low-transverse delivery. ANESTHESIA: Epidural. INDICATIONS: A 23-year-old, G2, P-0-0-1-0, at 41 weeks who initially presented at 40 and 6 for postdates induction of labor. She was taken back for primary low transverse for nonreassuring heart tones as indicated above on 08/08/2018. DESCRIPTION OF PROCEDURE: After risks, benefits, and alternatives were explained to the patient, she gave informed consent. Preoperative antibiotics included cefazolin 2 g IV as well as azithromycin 500 mg IV. The patient was taken to the operating room and placed in supine position with left tilt and prepped and draped in usual sterile fashion. A Pfannenstiel incision was made with the scalpel. Raphael-Chacon method was used to bluntly dissect down to the fascia. The fascia was extended bluntly with the fingers bilaterally. Superior and inferior edges of the cut fascial edges were elevated with Pascale clamps, and the underlying rectus muscles were sharply and bluntly dissected free. The recti were divided digitally and retracted manually. The peritoneum was entered bluntly and retracted medially. A bladder blade was placed. Aron O was placed. A low transverse score was made with the scalpel and the uterus was entered in the midline with the scalpel. Thick meconium was seen. Hysterotomy was extended manually. The infant was noted to be vertex, was easily delivered by fundal pressure. Mouth and nares were bulb suctioned. Cord was clamped and cut and grossly normal male was handed to the waiting nurse. Cord blood was obtained. Placenta was spontaneously extracted. It was found to be intact with three-vessel cord and sent to pathology due to concerns for chorioamnionitis. The uterus was externalized and endometrium was curetted with a dry lap. The endometrium was noted to be stained with meconium. The uterus was closed with a running locking #1 chromic suture followed by a running non-locking #1 chromic imbricating suture in a vertical fashion. Following this , hemostasis was noted. The abdomen was irrigated with saline and suctioned free of clots. The abdomen was then suctioned free of clots. The uterus was internalized and Aron O was removed. The hysterotomy was again noted to be hemostatic. The fascia was closed with a running nonlocking 0 PDS suture. The subcutaneous tissue was irrigated and the bleeders were cauterized. The skin was approximated with 4-0 monofilament and a dressing was placed. All counts were correct. The patient tolerated the procedure well and was taken to the recovery room in stable condition. ESTIMATED BLOOD LOSS: 669 mL. COMPLICATIONS: None. SPECIMENS: Cord blood was sent to lab blood type. Cord gas and placenta sent for analysis. FINDINGS: Grossly normal male with Apgars of 8 and 9. Grossly normal placenta, although it did appear meconium-stained. There was a three-vessel cord noted. Placenta sent to Pathology. DRAINS: [place] to gravity, draining clear urine. Job ID: [id number] [facility]
== END 2018-08-10 16:55 | disposition home or self-care (01) | DRG 788 ==
LOC: L&D 21:00 → 3SW 08-09 00:11
PROVIDERS: ADMIT Family Medicine; ATTEND Family Medicine
PROC: 10D00Z1 Extraction of Products of Conception, Low, Open Approach (ICD-10-PCS; principal; 2018-08-08)
DX: O48.0 Post-term pregnancy (principal); O76 Abnormality in fetal heart rate and rhythm complicating labor and delivery; Z3A.40 40 weeks gestation of pregnancy; Z37.0 Single live birth; O99.02 Anemia complicating childbirth; D64.9 Anemia, unspecified; O77.0 Labor and delivery complicated by meconium in amniotic fluid
CPT/HCPCS: 36415; 51702; 76815; 82805; 85027; 86780; 86850; 86900; 86901; 87340; 88307; J0171; J0456; J0595; J1885; J2001; J2210; J2274; J2310; J2405; J2590; J7050; S0020

== ENCOUNTER 2020-04-23 21:49 | Emergency (ER) | payer OTHER ==
[2020-04-23] MEDS ORDERED: Ketorolac Tromethamine 30 MG/ML VIAL ONE (22:46)
== END 2020-04-24 | disposition home or self-care (01) ==
LOC: ERS 21:49
DX: S39.012A Strain of muscle, fascia and tendon of lower back, initial encounter (principal); X50.9XXA Other and unspecified overexertion or strenuous movements or postures, initial encounter
CPT/HCPCS: 96372; 99283; J1885